=== PATIENT | male | born 1975 | race Caucasian/White ===

== ENCOUNTER → 2024-04-10 | Outpatient (CLI) | payer MEDICAID | END | disposition home or self-care (01) | LOC: LAB 10:45 | PROVIDERS: ATTEND Internal Medicine Cardiovascular Disease | DX: I11.9 Hypertensive heart disease without heart failure (principal); E11.9 Type 2 diabetes mellitus without complications; R06.02 Shortness of breath | CPT/HCPCS: 36415; 83880 ==

== ENCOUNTER → 2024-04-28 | Outpatient (CLI) | payer MEDICAID ==
[~2024-04-28] MED LIST: IOHEXOL 350 MG/ML 100ML INFUS..BTL IV ONE; Solu-medROL 125MG VIAL ONE
--- NOTE | 2024-04-29 12:01 | HMCIMG ---
CT ANGIOGRAM OF THE CHEST, ABDOMEN, AND PELVIS WITHOUT AND WITH CONTRAST. INDICATION: Family history of aortic dissection. TECHNIQUE: Routine 3 mm thick axial images were acquired from the thoracic inlet through the pelvis before and after the intravenous administration of 100 mL of Omnipaque 350 IV contrast. Maximum intensity projection coronal and sagittal reconstruction images provided for interpretation. CT was performed with one or more of the following dose reduction techniques: Automated exposure control, adjustment of the mA and/or kV according to patient size, or use of iterative reconstruction technique. COMPARISON: None available FINDINGS: CTA CHEST: The heart size is normal. Mild aortic valve calcific plaque. No pleural or pericardial effusions. Is any aortic caliber measures up to 4.6 cm. No evidence for thoracic aortic dissection. The trachea and airways are patent. The lungs are clear bilaterally. No evidence for pneumothorax. No axillary, hilar, or mediastinal lymphadenopathy. No abnormal filling defects identified within the main pulmonary artery trunk, right and left main pulmonary arteries, and the visualized branch vessels. Visible osseous structures appear normal. CT ABDOMEN: Diffuse low attenuation of the liver parenchyma suggests fatty change. Subtle high density within the gallbladder lumen. The spleen, pancreas, adrenal glands and right kidney appear normal. Subcentimeter simple cyst at the upper portion of the left kidney. No evidence for hydronephrosis. Bilateral cortical nephrograms appear normal, and are symmetric bilaterally. No significant retroperitoneal adenopathy. No evidence for intra-abdominal fluid collection or abscess. No evidence for pneumoperitoneum or intra-abdominal free fluid. Trace calcific plaque is noted along the abdominal aortic and iliac vessel lee without aneurysmal dilation or dissection. CT PELVIS: No significant pelvic adenopathy. No evidence for pelvic fluid collection or abscess. The small and large bowel loops appear normal without evidence for bowel obstruction. The retrocecal appendix is normal. No inflammatory changes identified within the lower abdomen and pelvis. The urinary bladder appears normal. Mild thoracolumbar spondylosis. IMPRESSION: Mild ascending aortic aneurysmal dilation and arteriosclerotic disease as described, without evidence for any other aortic aneurysm or dissection. Suspect gallbladder sludge or noncalcific gallbladder stones. Hepatic steatosis.
== END | disposition home or self-care (01) ==
LOC: EDUNIT# 04-17 11:00 → RAH 09:30
PROVIDERS: ATTEND Internal Medicine Cardiovascular Disease
DX: I71.21 Aneurysm of the ascending aorta, without rupture (principal); K76.0 Fatty (change of) liver, not elsewhere classified; N28.1 Cyst of kidney, acquired; I70.0 Atherosclerosis of aorta; M47.815 Spondylosis without myelopathy or radiculopathy, thoracolumbar region
CPT/HCPCS: 74174; 71275; J2919; Q9967

== ENCOUNTER → 2024-06-09 | Outpatient (CLI) | payer MEDICAID ==
--- NOTE | 2024-06-10 10:27 | HMCSR ---
APPROVED REPORT EXAM: Two-dimensional and M-mode echocardiogram with Doppler and color Doppler. INDICATION ICD: R06.00 Dyspnea 2D Dimensions RVDd4.3 cmLVEF(%)58.1 (>50%)LVED Vol(simp.)170.0 mL IVSd1.6 (0.7-1.1cm)FS(%)31 %LVES Vol(simp.)82.0 mL LVDd5.1 (3.8-5.6cm)Ao Root(2D)4.1 (2.0-3.7cm)LVEF(%, simp.)52 % PWd1.5 (0.7-1.1cm)LVOT diam2.5 (1.8-2.4cm)LA ESV INDEX (BP)27.47 mL/m2 LVDs3.5 (2.5-4.0cm)IVC diam2.0 cm Aortic Valve AoV Vmax3.1 m/Jessica Peak GR37.9 mmHgLVOT Vmax1.1 m/s AoV VTI0.5 mAo Mean GR23.7 mmHgLVOT VTI0.22 m DEBRA (VMAX)1.8 cm2AVA (VTI) 2.1 cm2 Mitral Valve MV E Vmax79.0 cm/sDECEL Fwle796 ms MV A Vmax59.8 cm/sP 1/2 T64 ms E/A ratio1.3MVA (PHT)3.4 cm2 MR Max PG115 mmHg TDI E/E' Ctrcnr18.2E/E' Lzzrpjw90.8 Pulmonary Valve PV Vmax1.1 m/sPV VTI0.23 mPV Mean GR3 mmHg PV Peak GR4.9 mmHg Tricuspid Valve RAP (EST) 8 mmHg Left Ventricle Left ventricular cavity size is normal. There is normal LV segmental wall motion. There is moderate c oncentric left ventricular hypertrophy. LVEF is 50-55%. Indeterminate diastolic dysfunction. Right Ventricle The right ventricle is mildly dilated. The right ventricular systolic function is normal. Atria The left atrium size is normal. The right atrium size is normal. Aortic Valve Aortic valve is heavily calcified. Cannot exclude a bicuspid valve. Trace aortic regurgitation. AV Di mensionless Index is 0.42 Moderate aortic stenosis. Calculated aortic valve area is 2.1 cm2 with maxi mum pressure gradient of 37.9 mmHg and mean pressure gradient of 23.6 mmHg. Mitral Valve Mitral valve leaflets are mildly sclerotic but open well. Mitral regurgitation is mild. There is no m itral valve stenosis. Tricuspid Valve The tricuspid valve leaflets appear normal. There is trace tricuspid regurgitation. Pulmonic Valve Pulmonic valve is not well visualized. There is trace pulmonic valvular regurgitation. Great Vessels Aortic root is moderately dilated. Ascending aorta is dilated. IVC is dilated and collapses >50% with inspiration. Pericardium No pericardial effusion. Other Information Quality : Technically Limited Technically limited study due to body habitus. Conclusion There is moderate concentric left ventricular hypertrophy. LVEF is 50-55%. Aortic valve is heavily calcified. Moderate aortic stenosis. Calculated aortic valve area is 2.1 cm2 with maximum pressure gradient of 3 7.9 mmHg and mean pressure gradient of 23.6 mmHg. Mitral regurgitation is mild. Ascending aorta is dilated.
== END | disposition home or self-care (01) ==
LOC: EDUNIT# 05-06 13:30 → SHCH 15:25
PROVIDERS: ATTEND Internal Medicine Cardiovascular Disease
DX: I08.0 Rheumatic disorders of both mitral and aortic valves (principal); I77.819 Aortic ectasia, unspecified site; R06.00 Dyspnea, unspecified
CPT/HCPCS: 93306